=== PATIENT | male | born 1940 | race Caucasian/White ===

== ENCOUNTER 2019-08-15 22:18 | Inpatient (IN) ==
--- NOTE | 2019-08-15 22:27 | EKG Report ---
Test Performed on : 08/15/2019 10:21:09 PM Test Reason : palpitations Blood Pressure : / mmHG Vent. Rate : 146 BPM Atrial Rate : 146 BPM P-R Int : 132 ms QRS Dur : 076 ms QT Int : 304 ms P-R-T Axes : 000 005 072 degrees QTc Int : 473 ms Sinus tachycardia. Nonspecific ST abnormality Abnormal ECG No previous ECGs available Unconfirmed Result
[2019-08-15] MEDS ORDERED: CARDIZEM IV ONE (23:05)
[2019-08-15 23:22] LABS: BASO# 0.06 X1000 (0.0-0.2); EOS# 0.11 X1000 (0.0-0.7); EOS% 1.8 % (0.0-10.0); HEMATOCRIT 38.7 % (42.0-52.0); HEMOGLOBIN 12.2 g/dL (14.0-18.0); LYMPH# 1.87 X1000 (1.2-3.4); MCH 25.5 PG (27-31); MCHC 31.5 g/dL (33-37); MCV 80.8 FL (81-99); MONO# 0.66 X1000 (0.11-0.59); MONO% 10.9 % (1.7-9.3); MPV 8.5 FL (7.4-10.4); NEUT# 3.34 X1000 (1.4-6.5); NEUT% 55.3 % (42.2-75.2); PLT 315 X1000 (130-400); RBC 4.79 XMIL (4.7-6.1); RDW 16.5 % (11.5-14.5); WBC 6.04 X1000 (4.8-10.8)
[2019-08-15 23:42] LABS: CALCIUM 9.5 mg/dL (8.8-10.2); CREATININE 1.7 mg/dL (0.7-1.2); POTASSIUM 4.8 mmol/L (3.5-5.1)
[2019-08-16] MEDS ORDERED: CARDIZEM PO ONE (00:15)
[2019-08-16] MEDS ORDERED: ASPIRIN PO ONE (00:15)
--- NOTE | 2019-08-16 00:34 | PROVIDER DOCUMENTATION ---
This chart was entered by Maricruz Oviedo Scribe, acting as scribe for Ivelisse Scott MD. HPI-Cardiac General - General Chief Complaint: Palpitations Stated Complaint: HIGH HEART RATE Time Seen by Provider: 08/15/19 22:29 Source: patient Allergies/Adverse Reactions: Patient Allergies Allergy/AdvReac Type Severity Reaction Status Date / Time cortisone Allergy Unknown Verified 08/15/19 23:41 Home Medications: Home Medication List Medication Instructions Recorded Confirmed Last Taken Type Aspirin [Aspir-Low] 81 mg PO DAILY 08/15/19 08/15/19 Unknown History Omeprazole [Prilosec] 20 mg PO DAILY 08/15/19 08/15/19 Unknown History - History of Present Illness-Cardiac Nature of Presenting Problem: pt is a 78 yr old male presenting with complaint of palpitations onset while at rest this evening, pt hx of Aflutter. pt reports he began feeling pressure in his jaw and checked his BP to realize his heart rate was 150+, pt then began feeling his heart racing. pt denies any chest pain, no shortness of breath, nausea or vomiting. pt reports he is currently on no blood thinner or heart medications and is in between cardiologists. Severity in ED: moderate Onset/Duration: just prior to arrival Timing: still present Context/Activities at Onset: reports: light activity Modifying Factors: improves with: nothing Palpitation Quality: irregular History of arrythmia: reports: other (a flutter) Recent use of:: reports: no stimulants Nitro Today/Relief: reports: no nitro taken today Aspirin Treatment Today: reports: no aspirin today Associated Symptoms: denies: diaphoresis, dizziness, fatigue, fever/chills, nausea, shortness of breath Similar Symptoms Previously?: Yes Recently Seen Here or By Another Healthcare Provider: No Review of Systems - Adult - REVIEW OF SYSTEMS - ADULT Constitutional: denies: chills, fever Eyes: reports: no symptoms reported Ears, Nose, Mouth & Throat: reports: no symptoms reported Cardiovascular: reports: irregular heart rate, palpitations. denies: chest pain, edema, syncope Respiratory: reports: cough. denies: dyspnea on exertion, shortness of breath Gastrointestinal: denies: abdominal pain, nausea Genitourinary: reports: no symptoms reported Musculoskeletal: denies: back pain, muscle aches, muscle weakness Integumentary: reports: no symptoms reported Neurological: denies: dizziness/vertigo, headache/migraines, syncope Psychiatric: reports: no symptoms reported Endocrine: reports: no symptoms reported Hematologic/Lymphatic: reports: no symptoms reported Allergic/Immunologic: reports: no symptoms reported All Other Systems: Reviewed and Negative Past History - Adult - PAST MEDICAL HISTORY-ADULT Review of Records: reports: Nursing Assessment Review, Medications Reviewed, Social history reviewed & non-contributory. Major Childhood Illnesses: reports: denies history Cardiovascular: reports: denies history Respiratory: reports: denies history Gastrointestinal: reports: denies history Obstetrical/Gynecological: reports: denies history Genitourinary: reports: denies history Musculoskeletal: reports: denies history Neurological: reports: denies history Endocrine/Immune: reports: denies history Other Conditions: reports: denies history - IMMUNIZATION STATUS Childhood Immunizations: See Nurse Assessment Flu Vaccine: See Nurse Assessment - FAMILY HISTORY Family History: reviewed, not pertinent - SOCIAL HISTORY Smoking: quit greater than 1 year (43yrs) Substance Use: denies Living Situation: family Physical Exam-General - PHYSICAL EXAM-ADULT Initial Vital Signs Reviewed: Yes - CONSTITUTIONAL General Appearance: alert, no apparent distress, anxious - EYES Eyes: PERRL/EOMI - HEAD, EARS, NOSE, MOUTH & THROAT HENMT: normocephalic/atraumatic, moist mucous membranes, normal ENT inspection - NECK Neck: non-tender, full range of motion, supple, normal inspection - RESPIRATORY Respiratory: chest non-tender, lungs clear, normal breath sounds, no respiratory distress, no accessory muscle use - CARDIOVASCULAR Cardiovascular: normal peripheral pulses, tachycardia, irregularly irregular - GASTROINTESTINAL (ABDOMEN) Abdominal Exam: normal bowel sounds, non tender, soft - LYMPHATIC Lymphatic: no adenopathy - MUSCULOSKELETAL Back Exam: normal inspection Extremity: normal range of motion, non-tender, normal gait - SKIN Integumentary: normal color, normal turgor, warm/dry - NEUROLOGIC Neurologic: grossly normal, no motor/sensory deficits - PSYCHIATRIC Psych/Mental Status: normal thought content, normal thought process, anxious - HEART Score HEART Score: History: Moderately Suspicious HEART Score: ECG: Normal HEART Score: Age: > or = 65 Years HEART Score: Risk Factors for Atherosclerotic Disease: 1 or 2 Risk Factors HEART Score: Troponin: 1-3x Normal Limit Total HEART Score:: 5 Progress - PLAN OF CARE/RESULTS Progress/Plan/Lab Results: Vital Signs - 8 hr 08/15/19 22:25 08/15/19 22:30 08/15/19 23:00 Temperature 97.9 F Pulse Rate 150 H 127 H 96 H Respiratory Rate 18 18 24 Blood Pressure 145/96 160/86 168/94 O2 Sat by Pulse Oximetry 96 95 97 08/15/19 23:30 08/15/19 23:38 08/15/19 23:47 Temperature Pulse Rate 83 87 82 Respiratory Rate 12 20 22 Blood Pressure 128/84 142/81 O2 Sat by Pulse Oximetry 97 97 96 08/15/19 23:50 08/15/19 23:56 08/16/19 00:01 Temperature Pulse Rate 82 72 78 Respiratory Rate 21 14 20 Blood Pressure 149/80 143/70 139/100 O2 Sat by Pulse Oximetry 97 94 L 97 08/16/19 00:05 08/16/19 00:10 08/16/19 00:15 Temperature Pulse Rate 74 74 68 Respiratory Rate 20 18 21 Blood Pressure 139/74 157/87 126/74 O2 Sat by Pulse Oximetry 97 97 99 08/16/19 00:20 Temperature Pulse Rate 66 Respiratory Rate 16 Blood Pressure 129/70 O2 Sat by Pulse Oximetry 95 Laboratory Results - last 24 hr 08/15/19 08/15/19 08/15/19 23:12 23:12 23:12 WBC 6.04 RBC 4.79 Hgb 12.2 L Hct 38.7 L MCV 80.8 L MCH 25.5 L MCHC 31.5 L RDW Std Deviation 16.5 H Plt Count 315 MPV 8.5 Immature Gran % (Auto) 0.0 Neut % (Auto) 55.3 Lymph % (Auto) 31.0 [place] % (Auto) 10.9 H Eos % (Auto) 1.8 Baso % (Auto) 1.0 H Immature Gran # (Auto) 0.00 Neut # (Auto) 3.34 Lymph # (Auto) 1.87 [place] # (Auto) 0.66 H Eos # (Auto) 0.11 Baso # (Auto) 0.06 Sodium 141 Potassium 4.8 Chloride 105 Carbon Dioxide 26 Anion Gap 10 BUN 27 H Creatinine 1.7 H Estimated GFR/1.73 m2 39 BUN/Creatinine Ratio 16 Glucose 114 H Calculated Osmolality 287 Calcium 9.5 Troponin T High Sens 36 H Orders Category Date Time Status IV Insertion ORDERED Care 08/15/19 23:05 Completed BASIC METABOLIC PANEL [CHEM] Stat Lab 08/15/19 23:12 Completed CBC WITH DIFF [HEME] Stat Lab 08/15/19 23:12 Completed TROPONIN T HIGH SENSITIVITY Stat Lab 08/15/19 23:12 Completed Aspirin Med 08/16/19 00:15 Discontinued 243 mg PO NOW ONE Diltiazem [Cardizem] Med 08/15/19 23:05 Discontinued 20 mg IV NOW ONE Diltiazem [Cardizem] Med 08/16/19 00:15 Discontinued 30 mg PO NOW ONE EKG [EKG] Stat Ther 08/15/19 22:20 Draft jaw pain with tachycardia, ekg consistnet with atrial flutter and pt with history of the same. will treat and will further evaluate for cause Result Diagrams: 08/15/19 23:12 08/15/19 23:12 - REASSESSMENT Reassessment #1 Status: improving (HR well controlled after IV diltiazem, jaw pain resolved. elevated troponin which may be rate related but will treat with asa and will admit for further evaluation and treatment. Discussed case wt Dr. Baum, hospitalist who will see and admit pt.) - EKG 1 Time of EKG reading by physician:: 22:25 EKG Read and Signed by:: Ivelisse Scott EKG Interpretation (*Must complete 3 of following elements*): Abnormal (aflutter) Rate: 146 Rhythm: aflutter Departure - Departure Date of Disposition Decision: 08/16/19 Time of Disposition Decision: 00:33 DIAGNOSIS: Elevated troponin Atrial flutter Qualifiers: Atrial flutter type: unspecified Qualified Code(s): I48.92 - Unspecified atrial flutter Disposition: ADMITTED INPATIENT 09 Certified Medical Emergency: Emergent Condition: Good - Critical Care Note This patient required my direct & personal management of CC.: No Attestation - Physician/ SAMMY Attestation Patient care was provided by Advanced Practice Provider:: No The physician spent face to face time with patient:: Yes Advanced Practice Provider documentation review:: Supervising physician onsite and consulted in the evaluation and care of this patient. The physician did have a face to face encounter with the patient. This chart was documented by the indicated scribe, (Maricruz Oviedo, [place]) and accurately reflects the services I performed and decisions made by me, Ivelisse Scott MD, as attested by the provider's signature.
[2019-08-16] MEDS ORDERED: CARDIZEM CD PO ONE (01:04)
[2019-08-16] MEDS: NS 1,000 ML IV SCH ×2 (02:11→16:32)
--- NOTE | 2019-08-16 02:14 | EKG Report ---
Test Performed on : 08/16/2019 01:52:44 AM Test Reason : repeat Blood Pressure : / mmHG Vent. Rate : 067 BPM Atrial Rate : 067 BPM P-R Int : 196 ms QRS Dur : 082 ms QT Int : 382 ms P-R-T Axes : 056 012 069 degrees QTc Int : 403 ms Normal sinus rhythm. Normal ECG When compared with ECG of 15-AUG-2019 22:21, (Unconfirmed) Vent. rate has decreased BY [address] elevation has replaced ST depression in Inferior leads ST no longer depressed in Anterolateral leads Unconfirmed Result
[2019-08-16 03:42] LABS: CK INDEX 1.7 (0.0-2.5); CK-MB 6.18 ng/mL (0.0-5.0)
[2019-08-16] MEDS ORDERED: DUONEB (A & A) INH PRN (04:45)
--- NOTE | 2019-08-16 06:11 | HISTORY AND PHYSICAL ---
CHIEF COMPLAINT: Rapid heart rate. HISTORY OF PRESENT ILLNESS: Mr. Rob Rm is an 78-year-old male who has a history of atrial flutter. The patient indicates that prior to presenting to the ER, he was watching TV and noted that his pulse rate was high between 158 to 180. The patient subsequently presented to the emergency room where he was diagnosed as being in atrial flutter with rapid ventricular rate. The patient did receive Cardizem 20 mg IV as well as Cardizem 30 mg p.o. The patient denies any chest pain, shortness of breath, or palpitations. No dizziness. No loss of consciousness. He has now been admitted to the floor for further management. PAST MEDICAL HISTORY: Atrial flutter, history of glaucoma as well as some mild asthma. SOCIAL HISTORY: Drinks alcohol occasionally. No cigarette smoking. No drug use. ALLERGIES: No known medication allergies. FAMILY HISTORY: Positive for heart disease as well as stroke. MEDICATIONS: 1. Aspirin 81 mg p.o. daily. 2. Omeprazole 20 mg p.o. daily. PAST SURGICAL HISTORY: Left knee surgery and right shoulder surgery. REVIEW OF SYSTEMS: Constitutional: No fever. 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 Eyes: Uses glasses. ENT: He has hearing loss. Cardiovascular: No chest pain. Respiratory: No cough. GI: No nausea or vomiting. No abdominal pains. : No dysuria. Dermatology: No skin lesions. Hematology: No bleeding problems. Musculoskeletal: He has joint pains. Psychiatry: No anxiety or depression. Endocrine: No thyroid disease or diabetes. PHYSICAL EXAMINATION: VITAL SIGNS: Temperature 97.9 degrees, pulse 150, respiratory rate 18, blood pressure 145/96 and oxygen saturation 96%. HEENT: Atraumatic, normocephalic. He is anicteric. Extraocular movements intact. Pupils are poorly reactive to light. No oral lesions. NECK: No lymphadenopathy or thyromegaly. CARDIOVASCULAR: S1, S2. Somewhat distant. RESPIRATORY: Good air entry bilaterally. ABDOMEN: Soft and nontender. No masses felt. EXTREMITIES: No evidence of edema. CENTRAL NERVOUS SYSTEM: No obvious focal deficits noted. LABORATORY DATA: WBC 6.04, hematocrit 38.7 with a platelet count of 315,000. Sodium 141, potassium 4.2, chloride is 105, bicarb 26, BUN 27, creatinine is 1.7, and troponin 36 to 48. Initial EKG shows sinus tachycardia with nonspecific ST-T abnormalities. Repeat EKG shows normal sinus rhythm. ASSESSMENT AND PLAN: 1. Atrial flutter with rapid ventricular rate. Place patient on telemetry. Obtain serial cardiac enzymes. Check thyroid function tests. Check 2D echo of the heart. Maintain patient on rate controlling agent. Continue aspirin. Of note, the patient indicates he has had bleeding while on anticoagulation in the past. Consult with Cardiology. 2. Mild asthma. Nebulized bronchodilators as needed. 3. Renal insufficiency. Acute versus chronic. Maintain patient on intravenous fluids. Follow up on renal function. Avoid nephrotoxic agent. 4. Deep vein thrombosis prophylaxis. Lovenox. 5. Gastrointestinal prophylaxis. Proton pump inhibitor. cc: Ethan Baum MD
[2019-08-16] MEDS ORDERED: PRILOSEC PO SCH (07:00)
[2019-08-16] MEDS ORDERED: CARDIZEM CD PO SCH (09:00)
[2019-08-16] MEDS ORDERED: ASPIRIN EC PO SCH (09:00)
[2019-08-16 12:29] LABS: CK-MB 6.18 ng/mL (0.0-5.0)
[2019-08-16] MEDS ORDERED: ELIQUIS PO SCH (13:00)
--- NOTE | 2019-08-16 13:25 | CARDIOLOGY CONSULTATION ---
DATE: 08/16/2019 HISTORY OF PRESENT ILLNESS: Mr. Rm is an 78-year-old gentleman who came with complaints of he noted that while he was watching TV his heart rate had gone up to 150 to 180. He came to the emergency room, was noted to be in atrial flutter. He received Cardizem CD 20 mg IV and 30 mg p.o., subsequently went back into sinus rhythm. Intermittently he has noticed elevated blood pressures at times at home, and with that he has noted some episodes of elevated heart rate as well. He was diagnosed to have atrial flutter. He was on Xarelto and had GI bleeding, and as a result he underwent upper GI endoscopy and colonoscopy, which were normal. He also says since stopping Xarelto, he has not had any further GI bleed. It was contemplated to have a capsule enteroscopy done if he had further GI bleeding. He is otherwise extremely active. There is no syncopal episode. Denies chest pain suggestive of angina. REVIEW OF SYSTEMS: A 14-point review of systems was done.Gastrointestinal System: There is no history of nausea, vomiting, diarrhea. There is no history of hematemesis or melena at the present time. Genitourinary System: There is no dysuria or hematuria. Respiratory: There is no history of cough, expectoration, hemoptysis. SOCIAL HISTORY: Patient does not smoke. There is no history of alcohol abuse. ALLERGIES: He is allergic to cortisone. PHYSICAL EXAMINATION: Vital Signs: On examination, blood pressure was 131/60. Cardiac: First and second heart sounds were heard. There was no S3 gallop. Respiratory System: Normal air entry. There are no crepitations or rhonchi. Abdomen: Soft, nontender. There was no guarding or rigidity. Bowel sounds were heard. Central Nervous System: Alert, oriented, was moving all 4 extremities. Extremities: Examination of extremities revealed no pedal edema. PAST MEDICAL HISTORY: 1. Atrial flutter, status post JOE cardioversion on 12/31/2018 2. Bleeding with Xarelto, upper GI and colonoscopy subsequently were negative other than some polyps were removed per patient. 3. Cardiac catheterization on 06/04/2016 revealed normal coronary arteries. 4. He has a thyroid cyst. 5. Minimal peripheral vascular disease. Carotid 0 to 39%. HOME MEDICATIONS: Include vitamin D, aspirin 81, milk of magnesia, omeprazole. ASSESSMENT AND PLAN: 1. Mr. Dusty Rm is an 78-year-old gentleman with history of atrial flutter. He has undergone cardioversion in the past. He has a history of hypertension and hyperlipidemia. He presents with palpitations he is currently in sinus rhythm. He was given Cardizem in the emergency room . He has been started on Cardizem CD 240 mg a day. He has tolerated that. Blood pressure is normal. He is in sinus rhythm. 2. I had a lengthy discussion with the patient. He has had bleeding with Xarelto and has undergone upper gastrointestinal endoscopy and colonoscopy. We will try him on other agent with Eliquis dose adjusted to 2.5 mg twice daily given his creatinine of 1.6 and age of 78. Again, I explained to him in detail regarding the likelihood of bleeding. Should he have bleeding, he has been advised to stop the Eliquis, and he needs then to have a capsule enteroscopy if required should he have bleeding. 3. We will also get him set up to see electrophysiology for consideration of ablation for his atrial flutter. 4. Gastroesophageal reflux disease. He is on omeprazole. I have not made any changes to his medication. cc: Will Limon MD MTDD
[2019-08-16 16:21] VITALS: BP 140/76
--- NOTE | 2019-08-16 16:42 | DISCHARGE SUMMARY ---
ADMISSION DATE: 08/16/2019 DISCHARGE DATE: 08/16/2019 BRIEF SUMMARY: He came in with rapid heart rate. This is a 78-year-old male with history of atrial flutter, indicates that prior to presenting to the ER, he was watching TV, noted his pulse rate got up between 158-180. The patient subsequently presented to the emergency room, was diagnosed with atrial flutter, rapid ventricular rate. The patient did receive some Cardizem 20 mg IV and Cardizem 30 mg p.o. He denied any chest pain, shortness of breath, palpitation. PAST MEDICAL HISTORY: 1. Atrial flutter. 2. Atrial fibrillation paroxysmal. 3. History of glaucoma. 4. History of some mild asthma. SOCIAL HISTORY: He drinks occasionally. MEDICATIONS: Aspirin and omeprazole 20 mg daily. 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 His cardiac enzymes were unremarkable. Thyroid functions appear normal. History of underlying asthma and some mild renal insufficiency. Cardiology saw him on 08/16, atrial flutter status post JOE cardioversion on 12/31/2018. He had some bleeding with Xarelto so the upper GI and colonoscopy subsequently were negative other than some polyps removed. He had heart catheterization 06/04/2016 revealed normal coronary arteries. He does have a thyroid cyst. Minimal peripheral vascular disease. So, this is an 78-year-old white male with history of atrial flutter, undergone cardioversion in the past, history of hypertension, hyperlipidemia, who presents with palpitations, currently in sinus rhythm, is given Cardizem in the emergency room. He was started on Cardizem CD 240 mg a day. He has tolerated that. Pressure is normal. Dr. Limon had a lengthy discussion with the patient. He had some bleeding on Xarelto and undergone an EGD. We will try him with Eliquis dose of 2.5 twice a day given his creatinine 1.6 and age of 78. Explained in detail regarding his likelihood of bleeding. Should he have bleeding, he would be advised to stop the Eliquis and then they may need to do further workup including capsule enteroscopy. He will see electrophysiology for consideration of ablation of his atrial flutter. He follow up with Dr. Mukherjee. Gastroesophageal reflux disease. He is on omeprazole. DISPOSITION: We will discharge him home. MEDICATIONS: Eliquis 2.5 mg b.i.d., Cardizem CD 240 mg a day, Prilosec 20 mg a day, and his omeprazole 20 mg daily. He will not take any aspirin. cc: Johnathan Chamorro MD
[2019-08-17] MEDS ORDERED: LOVENOX SUBQ SCH (09:00)
== END 2019-08-16 16:51 | disposition home or self-care (01) | DRG 310 ==
LOC: ED 22:18 → 3N 08-16 01:41 → SUATTDRO 08-16 01:41
PROVIDERS: ATTEND Emergency Medicine